=== PATIENT | male | born 2000 | race Caucasian/White ===

== ENCOUNTER 2024-09-22 13:47 | Emergency (ER) | payer OTHER, SELFPAY ==
--- NOTE | ~2024-09-22 | CT_ITS ---
EXAMINATION: CT HEAD WITHOUT CONTRAST CLINICAL INFORMATION: Head injury. COMPARISON: None. TECHNIQUE: Contiguous axial imaging was performed from the skull base to vertex without intravenous administration of contrast. This CT examination was performed using dose optimization techniques as appropriate, variously including the following: *Automated exposure control *Adjustment of mA and/or kV according to patient size (this includes techniques or standardized protocols for targeted exams where dose is matched to indication/reason for exam; i.e. extremities or head) *Use of iterative reconstruction technique DLP: 740 mGy-cm FINDINGS: There is no evidence of acute intracranial hemorrhage or edematous territorial infarction. There is no abnormal attenuation within the brain parenchyma. Griffin-white matter differentiation is preserved. The ventricles are normal in size and configuration. No evidence for obstructive hydrocephalus. No abnormal mass effect or midline shift. No extra-axial fluid collections. No acute soft tissue or osseous abnormalities. The mastoid air cells and paranasal sinuses are clear. CT/CT head/brain wo IV con IMPRESSION: No evidence of acute intracranial hemorrhage or edematous territorial infarction. Electronically signed by: Moni Mistry MD 09/22/2024 03:49 PM [facility]
[2024-09-22 13:52] VITALS: BP 133/90; PULSE 59; RESP 18; TEMP 36.9; O2SAT 98; BMI 21.8
--- NOTE | 2024-09-22 14:21 | ED.GENADULT ---
HPI - General Adult General Chief complaint: Head Injury Stated complaint: urgent care xray shows poss skull fx Time Seen by Provider: 09/22/24 13:50 Source: patient Mode of arrival: EMS Limitations: no limitations History of Present Illness HPI narrative: This is a 24-year-old otherwise healthy male who presents by EMS from urgent care for evaluation of potential skull fracture. Patient states that he has had headaches for the last 2 months. Patient reports that he has a headache every day. Patient reports that his headaches began in the afternoon. He states that he always feels it in the back of his head. He states that yesterday he slipped and fell and hit the back of his head on a wooden table. Patient states no loss of consciousness. Patient reports that he has had some nausea and vomiting. He states no vision loss. He states feeling foggy lightheaded. Patient reports feeling generally off and tired. He states no chest pain or dyspnea. He states no neck pain or extremity paresthesias. He states no abdominal pain. He States no back pain. He states no extremity injury or pain. He states that he was evaluated at an urgent care and was transferred here for further evaluation of potential skull fracture. Related Data Allergies Allergy/AdvReac Type Severity Reaction Status Date / Time Unable to Assess Allergy Verified 09/22/24 13:54 Review of Systems Review of Systems: ROS as per HPI [facility] Social History Social History Smoked in Last 30 Days: No Use of substances other than those prescribed or required for medical reasons: No Advance Directives: No Do you have a plan to hurt others: No Plan Physical Exam ED Vital Signs: Vital Signs - 24 hr 09/22/24 13:52 09/22/24 14:56 Temperature 98.5 F 98.3 F Pulse Rate 59 64 Respiratory Rate 18 18 Blood Pressure 133/90 H 118/79 Pulse Oximetry 98 97 Oxygen Delivery Method Room Air Room Air BMI result Body Mass Index 21.8 Gen: NAD, AOx3 HEENT: NCAT, EOMI without pain, normal conjunctiva, no hemotympanum, no CSF otorrhea/rhinorrhea, no periorbital or postauricular ecchymosis CV: RRR Pulm: CTAB, no increased work of breathing GI: Soft, NTND, no rebound, guarding or rigidity MSK: No midline vertebral tenderness to palpation, full active range of motion with neck flexion/extension and lateral 45 degree rotation Neuro: GCS 15, CN 2-12 intact, no dysmetria, no dysdiadochokinesia, 5/5 strength in bilateral upper and lower extremities, sensation intact to light touch in bilateral upper and lower extremities, no truncal ataxia Medical Decision Making Medical Decision Making [facility] Narrative: Differential diagnosis includes, but is not limited to traumatic intracranial hemorrhage, skull fracture, concussion. Patient is afebrile and hemodynamically stable on room air. Exam is benign and reassuring. I reviewed and interpreted labs, which are noncontributory. I reviewed radiology impression of diagnostic imaging studies, which as below are unremarkable for any acute findings. On re-examination, patient is well-appearing and in no acute distress. ?Patient states symptoms have resolved. ?There is no indication for further emergent evaluation in this otherwise well-appearing patient as above. ?Patient is provided written and verbal instructions, educational materials, recommendations for outpatient follow-up, strict return precautions and teach back is performed. ?Patient states understanding and agreement with plan of care. ?Patient is discharged home in stable and improved condition. Admission/Observation Consideration of admission/observation: Escalation of care including admission/observation considered Lab Data [facility] Lab Attestation statement: I reviewed the patient's lab results. I independently reviewed and for the patient's CBC, coagulation studies and metabolic panel, which are benign and reassuring. 09/22/24 14:33 09/22/24 14:33 Labs: Lab Results 09/22/24 Range/Units 14:33 WBC 6.0 (4.8-10.8) X10*3/uL RBC 4.98 (4.60-5.80) X10*6/uL Hgb 14.5 (14.0-18.0) g/dl Hct 42.0 (42.0-52.0) % MCV 84.3 (80.0-98.0) fL MCH 29.1 (27.0-33.0) pg MCHC 34.5 (31.0-36.0) g/dl RDW 13.2 (11.0-16.0) % Plt Count 219 (160-400) X10*3/uL MPV 10.7 (9.4-12.4) fL Immature Gran % (Auto) 0.5 H (0.0-0.4) % Neut % (Auto) 49.6 (45-73) % Lymph % (Auto) 40.8 H (20-40) % [place] % (Auto) 6.3 (2-11) % Eos % (Auto) 1.8 (0-4) % Baso % (Auto) 1.0 (0-2) % Lymph # (Auto) 2.5 (1.2-4.9) X10*3/uL [place] # (Auto) 0.4 (0.1-1.2) X10*3/uL Eos # (Auto) 0.1 (0.0-0.4) X10*3/uL Baso # (Auto) 0.1 (0.0-0.2) X10*3/uL Abs Immat Gran (auto) 0.03 (0.00-0.03) X10*3/uL Absolute Neuts (auto) 3.0 (2.0-8.3) x10*3/uL Absolute Nucleated RBC 0.000 (0.0-0.012) X10*3/uL Nucleated RBC % (auto) 0.0 (0.0-0.2) /100WBC APTT 35.0 (26.0-36.8) SEC Sodium 143 (135-145) mmol/L Potassium 4.2 (3.3-5.1) mmol/L Chloride 110 H (96-108) mmol/L Carbon Dioxide 24 (22-29) mmol/L Anion Gap 13 (12-20) BUN 9 (9-16) mg/dL Creatinine 0.92 (0.5-1.4) mg/dL Estim Creat Clear Calc 133.3 Estimated GFR > 60 Random Glucose 91 (60-115) mg/dL Calcium 10.3 H (8.4-10.2) mg/dL Radiology Impression Discussion of test interpretation with radiology: I have reviewed the radiologist's reading. Radiologist Impression: CT/CT head/brain wo IV con IMPRESSION: No evidence of acute intracranial hemorrhage or edematous territorial infarction. Electronically signed by: Moni Mistry MD 09/22/2024 03:49 PM [facility] Dictated By: Moni Mistry Signed By: <Electronically signed by Moni Mistry in OV> 09/22/24 1549 Discharge Plan Discharge Clinical Impression: Concussion without loss of consciousness Patient Disposition: Home, Self-Care Instructions: Concussion (ED) Additional Instructions: You were seen and evaluated in the emergency room after head injury. The CT scan of her head showed no broken bones or traumatic bleeding. Please avoid any strenuous/physical activity for the next 24-48 hours. Please be sure to stay hydrated by drinking at least a cups of water daily. You may be experiencing symptoms from a mild concussion, which may last several days/weeks. Please follow-up with your primary care doctor within the next 1 week for re-evaluation. Please avoid any activities that increase your risk for repeat head injury. Please avoid prolonged screen time with television/tablets/telephone as these may exacerbate your symptoms. Return to the emergency room with any new symptoms or concerns including, but not limited to severe headache, vision loss, seizure, lightheadedness, loss of consciousness or vomiting. Print Language: Slovak
[2024-09-22 14:38] LABS: MANUAL DIFF FLAG NO
[2024-09-22 14:41] LABS: Basophils Absolute Auto 0.1 X10*3/uL (0.0-0.2); Eosinophils Absolute Auto 0.1 X10*3/uL (0.0-0.4); Eosinophils Percent Auto 1.8 % (0-4); Hemoglobin 14.5 g/dl (14.0-18.0); Imm Gran Abs Auto 0.03 X10*3/uL (0.00-0.03); Imm Gran Pct Auto 0.5 % (0.0-0.4); Lymphocytes Absolute Auto 2.5 X10*3/uL (1.2-4.9); Lymphocytes Percent Auto 40.8 % (20-40); Mean Corpuscular HGB Conc 34.5 g/dl (31.0-36.0); Mean Corpuscular Hemoglobin 29.1 pg (27.0-33.0); Mean Corpuscular Volume 84.3 fL (80.0-98.0); Mean Platelet Volume 10.7 fL (9.4-12.4); Monocytes Absolute Auto 0.4 X10*3/uL (0.1-1.2); Monocytes Percent Auto 6.3 % (2-11); Neutrophils Percent Auto 49.6 % (45-73); Platelet Count 219 X10*3/uL (160-400); Red Blood Count 4.98 X10*6/uL (4.60-5.80); Red Cell Distribution Width 13.2 % (11.0-16.0)
[2024-09-22 14:53] LABS: Anion Gap 13 (12-20); Blood Urea Nitrogen 9 mg/dL (9-16); Calcium 10.3 mg/dL (8.4-10.2); Carbon Dioxide 24 mmol/L (22-29); Chloride 110 mmol/L (96-108); Creatinine Clr Calc Pharmacy 133.3; Estimated Glomerular Filt Rate > 60; Glucose Random 91 mg/dL (60-115); Potassium 4.2 mmol/L (3.3-5.1); Sodium 143 mmol/L (135-145)
[2024-09-22 14:56] VITALS: BP 118/79; PULSE 64; RESP 18; TEMP 36.8; O2SAT 97
--- NOTE | 2024-09-22 15:03 | PC.NURSE ---
patient w/ intermittent worsening headache. awaiting ct scan. IV established 18 left AC
--- NOTE | 2024-09-22 16:32 | PC.NURSE ---
patient removed own IV. upset with staff, arguing upon discharge. requesting to speak with provider, informed patient that the provider spoke with patient and he has been cleared d/t negative workup. patient in room stating that he does not believe that the ct scan was accurate. patient requesting lab work, educated on the need to follow up with medical records. patient took discharge paperwork.
[2024-09-22 16:33] VITALS: BP 118/79; PULSE 64; RESP 18; TEMP 36.8; O2SAT 97
== END 2024-09-22 16:34 | disposition home or self-care (01) ==
PROVIDERS: Emergency Provider Emergency Medicine
DX: S06.0X0A Concussion without loss of consciousness, initial encounter (principal); R51.9 Headache, unspecified; W01.190A Fall on same level from slipping, tripping and stumbling with subsequent striking against furniture, initial encounter; Y93.89 Activity, other specified; Y92.89 Other specified places as the place of occurrence of the external cause; Y99.8 Other external cause status; Z79.899 Other long term (current) drug therapy; Z51.81 Encounter for therapeutic drug level monitoring
CPT/HCPCS: 36415; 70450; 80048; 85025; 85730; 99284